=== PATIENT | male | born 1995 | race African-American/Black ===

== ENCOUNTER 2017-10-19 15:43 | Emergency (ER) | payer MEDICAID ==
[~2017-10-19] VITALS: Ht 172.7 cm; Wt 66.0 kg
[~2017-10-19 15:43] MED LIST: CLON-527 PO; CLON1TAB4 PO; METH10SO PO; PROM25TA14 PO; QUET200T PO
[2017-10-19 15:54] VITALS: BP 135/87
[2017-10-19] MEDS ORDERED: CLON-527 PO (15:57)
== END 2017-10-19 16:04 | disposition home or self-care (01) ==
LOC: ER 15:43
DX: Z00.00 Encounter for general adult medical examination without abnormal findings (principal); I10 Essential (primary) hypertension; F41.9 Anxiety disorder, unspecified; F12.90 Cannabis use, unspecified, uncomplicated; Z79.899 Other long term (current) drug therapy
CPT/HCPCS: 99283

== ENCOUNTER 2020-11-20 16:27 | Emergency (ER) | payer MEDICAID ==
[~2020-11-20] VITALS: Ht 175.3 cm; Wt 71.3 kg
[~2020-11-20 16:27] MED LIST changes: -CLON1TAB4 PO; +CLON1TAB96 PO
[2020-11-20 16:38] VITALS: BP 151/92
[2020-11-20] MEDS ORDERED: PRED20TA PO (17:27)
== END 2020-11-20 17:34 | disposition home or self-care (01) ==
LOC: ER 16:28
DX: L23.7 Allergic contact dermatitis due to plants, except food (principal); I10 Essential (primary) hypertension; F41.9 Anxiety disorder, unspecified; F32.9 Major depressive disorder, single episode, unspecified; F12.90 Cannabis use, unspecified, uncomplicated; F11.90 Opioid use, unspecified, uncomplicated; Z86.69 Personal history of other diseases of the nervous system and sense organs; Z79.899 Other long term (current) drug therapy
CPT/HCPCS: 99283

== ENCOUNTER 2025-04-04 16:50 | Emergency (ER) | payer MEDICAID ==
[~2025-04-04] VITALS: Ht 175.3 cm; Wt 94.8 kg
[2025-04-04 16:52] VITALS: BP 161/77; PULSE 98; RESP 16; TEMP 98; O2SAT 97
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
== END 2025-04-04 20:42 | disposition left against medical advice (07) ==
LOC: ER 16:51
DX: M79.604 Pain in right leg (principal); M79.605 Pain in left leg; I10 Essential (primary) hypertension; G40.909 Epilepsy, unspecified, not intractable, without status epilepticus; F41.9 Anxiety disorder, unspecified; F12.90 Cannabis use, unspecified, uncomplicated
CPT/HCPCS: 99282